=== PATIENT | female | born 1975 | race Caucasian/White ===

== ENCOUNTER 2017-09-19 21:23 | Emergency (ER) | payer MEDICAID ==
--- NOTE | 2017-09-19 21:46 | EDM.PDOC ---
ED HPI GENERAL MEDICAL PROBLEM - General Chief Complaint: Abdominal Pain Stated Complaint: OB ISSUES CRAMPS AND BAD PAIN Time Seen by Provider: 09/19/17 21:46 Source of Information: Reports: Patient History Limitations: Reports: No Limitations - History of Present Illness INITIAL COMMENTS - FREE TEXT/NARRATIVE: 41-year-old female presents to the ED with diffuse lower abdominal suprapubic pressure discomfort that radiates across her lower abdomen and into her lower back. She also has a strong feeling of a pressure in her perineal area. Patient reports that she's had previous total bowel hysterectomy with retention of her ovaries. He is 6 para 6. She also had a bladder sling procedure about 2 years ago. She feels like her insides are falling out. Complaining of dysuria with urge to void. She's never sure she completely empties her bladder. Is not seeing any blood in the urine. She has had occasional urinary tract infection since the bladder sling procedure was performed. States her bowel movements are for the most part normal although she admits that she has to push on her perineum at times to help facilitate a bowel movement. Denies any fever or chills. Her full at times due to the severity of the pain. She states that over the last several weeks the discomfort in her pelvis is getting worse. He is currently in a homosexual relationship and has not had any vaginal penetration for over a year. Onset: Gradual (Over the last several weeks or even months.) Duration: Week(s):, Getting Worse Location: Reports: Abdomen (Lower abdomen suprapubic pelvis rectum and low back) Quality: Reports: Pressure, Other Severity: Moderate (Some dysuria pain as 7 or 8 out of 10 at times.) Improves with: Reports: None Worsens with: Reports: Other Context: Denies: Activity (Prolonged standing), Exercise, Lifting, Sick Contact , Trauma, Other Associated Symptoms: Denies: No Other Symptoms, Confusion, Chest Pain, Cough, cough w sputum, Diaphoresis, Fever/Chills, Headaches, Loss of Appetite, Nausea/ Vomiting, Rash, Shortness of Breath, Syncope, Weakness Lower Abdominal Pain Score (Numeric/FACES): 8 - Related Data Allergies Allergy/AdvReac Type Severity Reaction Status Date / Time No Known Allergies Allergy Verified 09/19/17 22:58 Home Meds: Home Meds Sulfamethoxazole/Trimethoprim [Bactrim Ds Tablet] 1 each PO BID #10 tablet 09/20 [Rx] oxyCODONE HCl/Acetaminophen [Percocet 5-325 mg Tablet] 1 - 2 each PO Q4H PRN # 14 tablet 09/20/17 [Rx] Past Medical History - Past Surgical History Female Surgical History: Reports: Hysterectomy, Other (See Below) Other Female Surgeries/Procedures: bladder sling procedure with mesh graft 2 years ago done at the same time as the total abdominal hysterectomy. Ovaries were retained Social & Family History - Tobacco Use Smoking Status *Q: Current Every Day Smoker Years of Tobacco use: 25 Packs/Tins Daily: 0.5 - Recreational Drug Use Recreational Drug Use: No - Living Situation & Occupation Living situation: Reports: , with Significant Other (In a homosexual relationship with another lady.) Occupation: Employed ED ROS GENERAL - Review of Systems Review Of Systems: See Below Constitutional: Denies: Fever, Chills, Malaise, Weakness, Fatigue, Decreased Appetite, Weight Loss HEENT: Reports: No Symptoms Respiratory: Reports: No Symptoms Cardiovascular: Reports: No Symptoms Endocrine: Reports: No Symptoms GI/Abdominal: Reports: Abdominal Pain. Denies: Constipation, Diarrhea (See history present illness), Decreased Appetite, Difficulty Swallowing, Hematemesis , Hematochezia, Nausea, Stool Incontinence, Vomiting, Other : Reports: Dysuria (Intermittently. It is one of the reason she came to the ER tonight however.), Frequency Musculoskeletal: Reports: Back Pain (Diffuse low back pain associate with diffuse lower abdominal pelvic pain and perineal pressure discomfort.) Skin: Reports: No Symptoms Neurological: Reports: No Symptoms Psychiatric: Reports: No Symptoms ED EXAM, GI/ABD - Physical Exam Exam: See Below Exam Limited By: No Limitations General Appearance: Alert, WD/WN, Anxious (Appears quite anxious and obviously distressed.), Moderate Distress Eyes: Bilateral: Normal Appearance Respiratory/Chest: No Respiratory Distress, Lungs Clear, Normal Breath Sounds, Chest Non-Tender Cardiovascular: Normal Peripheral Pulses, Regular Rate, Rhythm, No Edema, No Gallop, No Murmur GI/Abdominal Exam: Normal Bowel Sounds, Soft, No Organomegaly, No Distention, No Abnormal Bruit, No Mass, Pelvis Stable, Tender (I'll tenderness suprapubically and deep palpation only), Other (Laparoscopic wound at the umbilicus.) (Female) Exam: Normal External Exam, Other (Bimanual examination done in the lying position. When I had her push with the introitus open she has a fairly protuberant rectocele. She also has a small cystocele. On bimanual examination there is a cystocele involving the proximal third to one half of the anterior vaginal wall. There is a moderate rectocele that does protrude from the introitus at time of standing. The vaginal cuff up still appears to be fairly well supported. I could identify no pelvic masses to suggest ovarian cyst.) Back Exam: Normal Inspection, Full Range of Motion. No: CVA Tenderness (L), CVA Tenderness (R) Extremities: Normal Inspection, Normal Range of Motion, Non-Tender, No Pedal Edema Neurological: Alert, Oriented, CN II-XII Intact, Normal Cognition Psychiatric: Normal Mood, Anxious, Tearful Skin Exam: Warm, Dry, Intact, Normal Color, No Rash Course - Vital Signs Last Recorded V/S: Last Vital Signs Temp 36.2 C 09/19/17 21:37 Pulse 87 09/19/17 21:37 Resp 20 09/19/17 21:37 BP 149/90 H 09/19/17 21:37 Pulse Ox 100 09/19/17 21:37 - Orders/Labs/Meds Labs: Laboratory Tests 09/19/17 Range/Units 21:44 Urine Color Yellow (Yellow) Urine Appearance Clear (Clear) Urine pH 6.0 (5.0-8.0) Ur Specific [place] 1.015 (1.005-1.030) Urine Protein Negative (Negative) Urine Glucose (UA) Negative (Negative) Urine Ketones Negative (Negative) Urine Occult Blood Negative (Negative) Urine Nitrite Negative (Negative) Urine Bilirubin Negative (Negative) Urine Urobilinogen 0.2 (0.2-1.0) Ur Leukocyte Esterase Negative (Negative) Urine RBC 0-5 (0-5) /hpf Urine WBC 0-5 (0-5) /hpf Ur Epithelial Cells 5-10 H (0-5) /hpf Urine Bacteria Few (FEW) /hpf Urine Mucus Not seen (FEW) /hpf Meds: Medications Discontinued Medications Generic Name Dose Route Start Last Admin Trade Name Freq PRN Reason Stop Dose Admin Oxycodone/Acetaminophen 2 tab 09/19/17 22:42 09/19/17 22:49 Percocet 325-5 Mg PO 09/19/17 22:43 2 tab ONETIME ONE Administration Phenazopyridine HCl 95 mg 09/20/17 22:41 Urinary Pain Relief PO 09/20/17 22:42 ONETIME ONE Phenazopyridine HCl 95 mg 09/19/17 22:41 09/19/17 22:49 Urinary Pain Relief PO 09/19/17 22:42 95 mg ONETIME ONE Administration Trimethoprim/Sulfamethoxazole 1 tab 09/20/17 00:25 09/20/17 00:37 Septra Ds PO 09/20/17 00:26 1 tab ONETIME ONE Administration - Radiology Interpretation Free Text/Narrative:: 41-year-old female presents to the ED for evaluation of dysuria chronic pelvic pain for 2 months as well as pressure in the perineum. She states 2 years ago she had total abdominal hysterectomy performed due to prolapse. She ovaries were retained. She also had a bladder sling procedure at that time. Over the last few months she's had increasing pelvic pressure discomfort and radiating pain into her lower back. She has perineal pain and pressure discomfort and a feeling like her insides are falling out. She has not no obvious blood in the urine. She is concerned that there is a problem with her bladder sling. She has no fever or chills. He does admit to having to push on her perineum intermittently to facilitate a bowel movement. Plan urinalysis will be performed. I will then perform a vaginal examination to look for cystocele rectocele which by history is highly suggested. - Re-Assessments/Exams Free Text/Narrative Re-Assessment/Exam: 09/19/17 22:43 urinalysis is negative for infection. Patient is still having significant lower abdominal discomfort. We'll give HER-2 Percocet orally as well as Pyridium 99 mg since she has such bad dysuria. I will how check her vaginally to see if she has a cystocele rectocele or vaginal prolapse. Patient is asking for something for pain. I therefore gave her Pyridium 95 mg per ora and Percocet tabs 11/10/24 2 per ora. 09/20/17 23:45: Pelvic examination was done in the supine position. With her bearing down with the introitus exposed she does have an obvious rectocele and small cystocele. Bimanual examination reveals the vaginal cuff to be 6 still well supported on supine position. No pelvic masses were appreciable. On bearing down she has a large rectocele which pushes up in meets the anterior vaginal wall. She has a moderate anterior cystocele involving the proximal half of the anterior vaginal wall. The introitus itself appears to be normal with no sign of a carbuncle. When I'm going to treat with Bactrim DS twice a day for 5 days in case she has a urethritis without evidence of urinary tract infection. She will have to scallop with T[employer] WAGON OPERATOR to discuss a and P repair. Thighs the women [facility] clinic here in the hospital. At present she's working [employer] part-time and doesn't helpful benefits yet. Toes she has appropriate insurance before pursuing definitive surgical management. She seemed to be relieved that she does have positive findings. Also the fact that these could be repaired. Given Percocet tabs 5/3/25 milligrams strength 14 to be used on a when necessary basis for severe pelvic pain discomfort. Departure - Departure Time of Disposition: 00:29 Disposition: Home, Self-Care 01 Condition: Fair Clinical Impression: Cystocele with rectocele, Chronic pelvic pain in female, Dysuria - Discharge Information Prescriptions: oxyCODONE HCl/Acetaminophen [Percocet 5-325 mg Tablet] 1 - 2 each PO Q4H PRN # 14 tablet PRN Reason: pain relief. Sulfamethoxazole/Trimethoprim [Bactrim Ds Tablet] 1 each PO BID #10 tablet Instructions: Pelvic Pain, Female, [id number], Dysuria Referrals: PCP,None [Primary Care Provider] - Forms: ED Department Discharge Additional Instructions: Evaluation the emergency room tonight in regards to diffuse lower abdominal pelvic pain. They seem to be gradually getting worse over several weeks or months. Associated dysuria or burning with voiding. Previous abdominal surgeries that of total bowel hysterectomy with retention of the ovaries. Bladder sling procedure was carried out at the same time. Urinalysis done in the ED today was negative for any signs of infection. However due to complaints of burning with voiding you could have a low-grade infection just in the urethra or the passage at the urine passes through from the bladder and therefore you were placed on a short course of Bactrim double strength tablet one twice daily for 5 days to clear this up if there was a low-grade infection. The main problem is development of a moderate cystocele and a fairly large rectocele. This is causing her to feel like her bottom is essentially falling out. A pelvic ultrasound will be done by T[employer] W[employer] OPERATOR to have a look at her ovaries when you attend the clinic. His required with T[employer] W[employer] OPERATOR when you feel that time is appropriate. [address] Cook and Dr. Miguel. Please call [phone] to arrange an appointment at your convenience. They have access to the records that were created adelita.
[2017-09-19] MEDS ORDERED: Phenazopyridine 95 MG Tab PO ONE (22:41)
[2017-09-19] MEDS ORDERED: Acetaminophen/oxyCODONE 325-5 MG Tab PO ONE (22:42)
[2017-09-20] MEDS ORDERED: Sulfamethoxazole/Trimethoprim 800-160 MG Tab PO ONE (00:25)
[2017-09-20] MEDS ORDERED: Phenazopyridine 95 MG Tab PO ONE (22:41)
== END 2017-09-20 00:40 | disposition home or self-care (01) ==
LOC: JD.ED 21:23
DX: N81.6 Rectocele (principal); N81.10 Cystocele, unspecified; F17.210 Nicotine dependence, cigarettes, uncomplicated; Z98.890 Other specified postprocedural states; Z90.710 Acquired absence of both cervix and uterus
CPT/HCPCS: 51798; 81001; 99284; A9270

== ENCOUNTER 2017-11-15 07:07 | Day surgery (SDC) | payer MEDICAID, OTHER ==
[~2017-11-15 07:07] MED LIST: Lidocaine 1%/Sod Bicarbonate in NS 8.4% 1 ML Syringe IDERM PRN; Sodium Chloride 0.9% 10 ML Syringe FLUSH PRN
[2017-11-15] MEDS ORDERED: Propofol 200 MG/20 ML SDV ONE (07:12)
[2017-11-15] MEDS ORDERED: fentaNYL 250 MCG/5 ML SDV ONE (07:12)
[2017-11-15] MEDS ORDERED: Midazolam 1 MG/ML 2 ML SDV ONE (07:14)
[2017-11-15] MEDS ORDERED: Ondansetron 4 MG/2 ML SDV ONE (07:16)
[2017-11-15] MEDS ORDERED: Lidocaine 1% 4 ML ONE (07:16)
[2017-11-15] MEDS ORDERED: Dexamethasone 4 MG/ML 5 ML MDV ONE (07:16)
[2017-11-15] MEDS: Lactated Ringers 1,000 ML IV SCH ×2 (07:50→09:56)
[2017-11-15] MEDS ORDERED: ceFAZolin 1 GM Vial ONE (07:55)
[2017-11-15] MEDS: Lidocaine 1% with EPINEPHrine 1:100,000 20 ML MDV ONE ×2 (08:23→08:36)
[2017-11-15] MEDS: Sodium Chloride 0.9% 50 ML SDV ONE ×2 (08:23→08:36)
--- NOTE | 2017-11-15 08:45 | PCM.PREANE ---
Preanesthetic Assessment - Procedure Proposed Procedure: Anterior and posterior colporrhapy - Anesthesia/Transfusion/Family Hx Anesthesia History: Prior Anesthesia Without Reaction Family History of Anesthesia Reaction: No Transfusion History: No Prior Transfusion(s) (reports no problems) Intubation History: Unknown Additional History: reports no medical problems - Review of Systems General: No Symptoms Pulmonary: No Symptoms Cardiovascular: No Symptoms Gastrointestinal: No Symptoms Neurological: No Symptoms Other: Reports: None, Anxiety - Physical Assessment NPO Status Date: 11/14/17 NPO Status Time: 00:00 O2 Sat by Pulse Oximetry: 99 Respiratory Rate: 16 Vital Signs: Last Vital Signs Temp 36.1 C 11/15/17 07:20 Pulse 81 11/15/17 07:20 Resp 16 11/15/17 07:20 BP 112/70 11/15/17 07:20 Pulse Ox 99 11/15/17 07:20 Height: 1.73 m Weight: 93.894 kg ASA Class: 2 Mental Status: Alert & Oriented x3 Airway Class: Mallampati = 1 Dentition: Reports: Missing Tooth/Teeth (molars ) Thyro-Mental Finger Breadths: 3 Mouth Opening Finger Breadths: 3 ROM/Head Extension: Full Lungs: Clear to Auscultation, Normal Respiratory Effort Cardiovascular: Regular Rate, Regular Rhythm - Lab Values: Laboratory Last Values WBC 8.12 K/mm3 (3.98-10.04) 11/15/17 07:50 RBC 4.69 M/mm3 (3.98-5.22) 11/15/17 07:50 Hgb 13.6 gm/L (11.2-15.7) 11/15/17 07:50 Hct 40.2 % (34.1-44.9) 11/15/17 07:50 MCV 85.7 fl (79.4-94.8) 11/15/17 07:50 MCH 29.0 pg (25.6-32.2) 11/15/17 07:50 MCHC 33.8 g/dl (32.2-35.5) 11/15/17 07:50 RDW Std Deviation 39.6 fL (36.4-46.3) 11/15/17 07:50 Plt Count 201 K/mm3 (182-369) 11/15/17 07:50 MPV 10.8 fl (9.4-12.3) 11/15/17 07:50 Neut % (Auto) 44.9 % (34.0-71.1) 11/15/17 07:50 Lymph % (Auto) 44.3 % (19.3-51.7) 11/15/17 07:50 Jerome % (Auto) 6.7 % (4.7-12.5) 11/15/17 07:50 Eos % (Auto) 3.7 (0.7-5.8) 11/15/17 07:50 Baso % (Auto) 0.4 % (0.1-1.2) 11/15/17 07:50 Neut # (Auto) 3.65 K/mm3 (1.56-6.13) 11/15/17 07:50 Lymph # (Auto) 3.60 K/mm3 (1.18-3.74) 11/15/17 07:50 Jerome # (Auto) 0.54 K/mm3 (0.24-0.36) H 11/15/17 07:50 Eos # (Auto) 0.30 K/mm3 (0.04-0.36) 11/15/17 07:50 Baso # (Auto) 0.03 K/mm3 (0.01-0.08) 11/15/17 07:50 - Allergies Allergies/Adverse Reactions: Allergies Allergy/AdvReac Type Severity Reaction Status Date / Time No Known Allergies Allergy Verified 11/14/17 13:00 - Blood Blood Available: No Product(s) Available: None - Anesthesia Plan Pre-Op Medication Ordered: None - Acknowledgements Anesthesia Type Planned: General Anesthesia (LMA) Pt an Appropriate Candidate for the Planned Anesthesia: Yes Alternatives and Risks of Anesthesia Discussed w Pt/Guardian: Yes Pt/Guardian Understands and Agrees with Anesthesia Plan: Yes PreAnesthesia Questionnaire HEENT History: Reports: Impaired Vision Cardiovascular History: Reports: None Respiratory History: Reports: None Gastrointestinal History: Reports: None GRANT COORDINATOR History: Reports: Musculoskeletal History: Reports: None Neurological History: Reports: None Psychiatric History: Reports: None Endocrine/Metabolic History: Reports: None Hematologic History: Reports: None Immunologic History: Reports: None Oncologic (Cancer) History: Reports: None Dermatologic History: Reports: None - Past Surgical History Head Surgeries/Procedures: Reports: None Cardiovascular Surgical History: Reports: None Respiratory Surgical History: Reports: None GI Surgical History: Reports: None Female Surgical History: Reports: Breast Implant, Hysterectomy, Tubal Ligation, Other (See Below) Other Female Surgeries/Procedures: bladder sling procedure with mesh graft 2 years ago done at the same time as the total abdominal hysterectomy. Ovaries were retained Endocrine Surgical History: Reports: None Neurological Surgical History: Reports: None Musculoskeletal Surgical History: Reports: None Oncologic Surgical History: Reports: None Dermatological Surgical History: Reports: None - SUBSTANCE USE Smoking Status *Q: Current Every Day Smoker Recreational Drug Use History: No - HOME MEDS Home Medications: Home Meds . [No Known Home Meds] 11/14/17 [History] - CURRENT (IN HOUSE) MEDS Current Meds: Current Medications Lactated Ringer's (Ringers, Lactated) 1,000 mls @ 125 mls/hr IV ASDIRECTED MARCUS Stop: 11/15/17 23:00 Last Admin: 11/15/17 07:50 Dose: 125 mls/hr Lidocaine/Sodium Bicarbonate (Buffered Lidocaine 1% In Ns 8.4%) 0.25 ml IDERM ONETIME PRN PRN Reason: Prior to IV Start Stop: 11/15/17 18:00 Last Admin: 11/15/17 07:50 Dose: 0.25 ml Sodium Chloride (Saline Flush) 10 ml FLUSH ASDIRECTED PRN PRN Reason: Keep Vein Open Stop: 11/15/17 18:00 Discontinued Medications Cefazolin Sodium (Ancef) Confirm Administered Dose 2 gm .ROUTE .STK-MED ONE Stop: 11/15/17 07:56 Dexamethasone (Dexamethasone) Confirm Administered Dose 20 mg .ROUTE .STK-MED ONE Stop: 11/15/17 07:17 Fentanyl (Sublimaze) Confirm Administered Dose 250 mcg .ROUTE .STK-MED ONE Stop: 11/15/17 07:13 Lidocaine HCl (Xylocaine-Mpf 1%) Confirm Administered Dose 4 mls @ as directed .ROUTE .STK-MED ONE Stop: 11/15/17 07:17 Lidocaine/Epinephrine (Xylocaine 1% With Epinephrine 1:100,000) Confirm Administered Dose 20 ml .ROUTE .STK-MED ONE Stop: 11/15/17 07:28 Last Admin: 11/15/17 08:36 Dose: 20 ml Midazolam HCl (Versed 1 Mg/Ml) Confirm Administered Dose 2 mg .ROUTE .STMeetDoctor-MED ONE Stop: 11/15/17 07:15 Ondansetron HCl (Zofran) Confirm Administered Dose 4 mg .ROUTE .STMeetDoctor-MED ONE Stop: 11/15/17 07:17 Propofol (Diprivan 20 Ml) Confirm Administered Dose 200 mg .ROUTE .compropago-MED ONE Stop: 11/15/17 07:13 Sodium Chloride (Normal Saline) Confirm Administered Dose 50 ml .[email or web address] ONE Stop: 11/15/17 07:28 Last Admin: 11/15/17 08:36 Dose: 50 ml
[2017-11-15] MEDS ORDERED: Lactated Ringers 1,000 ML ONE (08:47)
[2017-11-15] MEDS ORDERED: Ketorolac 30 MG/ML SDV ONE (09:05)
--- NOTE | 2017-11-15 09:18 | PCM.OPNOTE ---
- General Post-Op/Procedure Note Date of Surgery/Procedure: 11/15/17 Operative Procedure(s): Anterior posterior colporrhaphy 86645 Pre Op Diagnosis: Cystocele N81.11, rectocele N81.6 Post-Op Diagnosis: Same Anesthesia Technique: General LMA Primary Surgeon: Jose Ramon Cook Secondary Surgeon: Tian Miguel Anesthesia Provider: Олег Kuhn Paginator: Dmitry Yeager Reason Paginator Was Necessary: Difficulty of procedure, retraction, decrease comorbidity and comortality Role of Paginator: Difficulty of procedure, retraction, decrease comorbidity and comortality Fluid Replacement, Intraop: 1,500 Output, Urine Amount: 0 EBL in mLs: 50 Drain/Tube Comments:: None Complications: None Condition: Good Free Text/Narrative:: Patient was transported to the operating room and placed under LMA anesthesia in the low dorsal lithotomy position. SCDs in place and functioning prior surgery. Ancef 2 g given intravenously prior surgery. Prepared and draped in sterile fashion. Examination under anesthesia revealed cystocele and rectocele. Timeout performed confirming name date of and procedure as anterior and posterior colporrhaphy. The patient had Allis clamps placed at the cysto- urethral angle and at the apex of the vagina. Injecting lidocaine 0.25% with epinephrine to aid in hydrodissection and decrease blood loss the subcutaneous tissue was injected. Incising with the scalpel plane then created bilaterally with Metzenbaum scissors and traction on Allis clamps placed on each side of the vaginal mucosa. After the plane had been established, plication sutures of 0 Monocryl were placed initially at the cystoscopy urethral angle and proceeding cephalad reducing the cystocele. The mucosa was then closed with 3-0 Monocryl running suture. The posterior pair was then performed by injecting lidocaine 0.25% with epinephrine in the subcutaneous tissue of the perineal body and vagina to aid in hydrodissection and hemostasis. A triangular piece of tissue was then taken from approximately 2-1/2 cm into the vagina and approximately 1/2 cm towards the anal verge. This fabiola-shaped piece of tissue was removed. The vaginal mucosa was then undermined with Metzenbaum scissors and incised to the apex of the vagina where an Allis clamp had been placed initially. Utilizing Metzenbaum scissors the plane was established and pushed cephalad. Utilizing 0 Monocryl suture plication sutures were placed initially at the apex of the vaginal mucosa reducing the rectocele. These plication sutures were carried to approximately 2-1/2 cm from the introitus. The redundant vaginal mucosa was then excised and closed with 3-0 Monocryl running suture to approximately 2-1/2 cm from the introitus. The perineoplasty was then performed with plication sutures of 0 Monocryl followed by closure of the vaginal mucosa with 3-0 Monocryl and subcutaneous 3-0 Monocryl to approximate the tissue on the perineal body. The skin was then approximated with 3-0 Monocryl subcuticular suture. Sponge needle pack asthma sharp count correct 2. 2 fingerbreadths of with an approximately 7-8 cm of depth the vagina remained. No blood transfusions were required. Patient given Toradol. Patient transported postanesthesia care unit in satisfactory condition.
[2017-11-15] MEDS ORDERED: Meperidine PF 50 MG/ML Syringe IVPUSH PRN (09:24)
[2017-11-15] MEDS ORDERED: diphenhydrAMINE 50 MG/ML SDV IVPUSH PRN (09:24)
[2017-11-15] MEDS ORDERED: Ondansetron 4 MG/2 ML SDV IVPUSH PRN (09:24)
--- NOTE | 2017-11-15 09:24 | PCM.POSTAN ---
POST ANESTHESIA ASSESSMENT - MENTAL STATUS Mental Status: Alert, Oriented - VITAL SIGNS Pulse Rate: 94 SaO2: 100 Resp Rate: 16 Blood Pressure: 110/65 Temperature: 36.3 C - RESPIRATORY Respiratory Status: Respiratory Rate WNL, Airway Patent, O2 Saturation Stable, Supplemental Oxygen - CARDIOVASCULAR CV Status: Pulse Rate WNL, Blood Pressure Stable - GASTROINTESTINAL GI Status: No Symptoms - PAIN Pain Score: 0 - POST OP HYDRATION Hydration Status: Adequate & Stable
[2017-11-15] MEDS ORDERED: HYDROmorphone 0.5 MG/0.5 ML Syringe IVPUSH ONE ×2 (09:30→10:15)
[2017-11-15] MEDS: fentaNYL 100 MCG/2 ML SDV IVPUSH PRN ×3 (09:32→09:53)
[2017-11-15] MEDS ORDERED: Acetaminophen/oxyCODONE 325-5 MG Tab PO SCH (13:00)
--- NOTE | 2017-11-15 13:53 | PCM.SN ---
- Free Text/Narrative Note: Acute urinary retention, unable to void and empty bladder. Will do extended floor recovery and re-evaluate in AM. Prevoid and post-void bladder scan for residual and in and out catheter if >150 ml. No heavy vaginal bleeding. Doing well. Vital signs normal.
[2017-11-15] MEDS ORDERED: Ibuprofen 600 MG Tab PO PRN (13:54)
[2017-11-15] MEDS ORDERED: Acetaminophen/oxyCODONE 325-5 MG Tab PO PRN (13:54)
== END 2017-11-15 19:42 | disposition home or self-care (01) ==
LOC: JD.SDS 07:07
PROVIDERS: ATTEND Obstetrics & Gynecology
DX: N81.10 Cystocele, unspecified (principal); N81.6 Rectocele; N31.9 Neuromuscular dysfunction of bladder, unspecified; F17.210 Nicotine dependence, cigarettes, uncomplicated; Z90.710 Acquired absence of both cervix and uterus; Z98.51 Tubal ligation status; Z98.890 Other specified postprocedural states
CPT/HCPCS: 36415; 51798; 57260; 85025; 86850; 86900; 86901; A9270; J0690; J1100; J1170; J1200; J1885; J2001; J2250; J2405; J3010; J7120; 00942; J2704